=== PATIENT | male | born 1965 | race Caucasian/White ===

== ENCOUNTER 2023-12-29 07:51 | Outpatient (CLI) | payer BC | END 2023-12-29 07:52 | disposition home or self-care (01) | LOC: CSHMRI 07:51 | PROVIDERS: ATTEND Student in an Organized Health Care Education/Training Program | DX: S86.811A Strain of other muscle(s) and tendon(s) at lower leg level, right leg, initial encounter (principal); S89.91XA Unspecified injury of right lower leg, initial encounter; M62.81 Muscle weakness (generalized); M79.604 Pain in right leg; M79.89 Other specified soft tissue disorders; S80.11XA Contusion of right lower leg, initial encounter; M62.561 Muscle wasting and atrophy, not elsewhere classified, right lower leg ==